=== PATIENT | female | born 1955 | race Caucasian/White ===

== ENCOUNTER 2016-04-21 06:57 | Outpatient (CLI) ==
[2015-11-26 19:08] VITALS: BMI 24.4
--- NOTE | 2016-04-21 11:11 | CT ---
EXAM: CT chest with contrast HISTORY: Breast cancer COMPARISON: 01/22/2016 TECHNIQUE: CT chest performed with intravenous contrast. Coronal and sagittal reformatted images o btained. FINDINGS: Thyroid and thoracic inlet appear normal. Right chest port terminating in superior vena cava. Heart is normal in size. No pericardial effusion. Aorta normal in caliber with atherosclero sis. No acute abnormalities of the bones. No suspicious lytic or blastic lesions identified. Dege nerative changes in the spine. No pneumothorax. No pleural effusion. No focal consolidation. The re is severe emphysematous change with probable honeycombing/fibrosis. Stable line seen in the post erior right lung. There is a right upper lobe nodular density on image 19 that measures 1.1 x 1.0 c m, unchanged. Additional 1.0 cm nodule right upper lobe image 15 also grossly unchanged. No new pu lmonary nodules identified. Stable partially calcified mediastinal and hilar lymph nodes. There is a newly enlarged 1.1 cm right mediastinal lymph node adjacent to the superior vena cava on image 22. Additional stable partially calcified mediastinal and hilar lymph nodes present. No axillary lymp hadenopathy. Please refer to separate report CT abdomen pelvis regarding findings in the upper abdom en. IMPRESSION: 1. Pulmonary metastasis, grossly unchanged. 2. Newly enlarged mediastinal lymph node as described. Additional stable partially calcified media stinal and hilar lymph nodes. 3. Emphysema.
--- NOTE | 2016-04-21 11:39 | CT ---
EXAM: CT ABDOMEN AND PELVIS HISTORY: History of breast cancer TECHNIQUE: CT abdomen and pelvis with intravenous contrast. Images were reconstructed using 5 mm se ction thickness. Reformations were prepared. 75 mL Omnipaque. COMPARISON: 01/22/2016 FINDINGS: No liver or splenic lesions identified. Gallbladder is absent. Pancreas and adrenal glands appear normal. A few tiny low attenuation lesions of the kidneys may represent cysts. No hydronephrosis. Moderate atherosclerotic disease of the aorta with no aneurysmal caliber. No evidence of retroperi toneal or mesenteric lymphadenopathy. Stomach is within normal limits. Bowel gas pattern is nonobstructive. No uterus is present. Urina ry bladder is unremarkable. No ascites. There is no notable abdominal wall hernia. Scoliosis and degenerative facet disease of the lower spine are present. No osseous metastases are clearly eviden t. Fibrosis of the lung bases is moderately severe. IMPRESSION: 1. No evidence of metastatic disease. 2. Moderate atherosclerotic disease. 3. Fibrotic lung bases.
== END 2016-04-21 06:58 | disposition home or self-care (01) ==
LOC: RAD 06:57
PROVIDERS: ATTEND Internal Medicine Hematology & Oncology
DX: C50.919 Malignant neoplasm of unspecified site of unspecified female breast (principal)

== ENCOUNTER 2016-05-14 09:36 | Outpatient (CLI) ==
[2015-11-26 19:08] VITALS: BMI 24.4
--- NOTE | 2016-05-14 11:56 | CT ---
EXAM: CT chest, abdomen and pelvis HISTORY: Breast cancer, evaluation for metastatic disease. TECHNIQUE: CT chest, abdomen and pelvis with intravenous contrast. Detailed axial sections. Coron al and sagittal re-formations. 75 ml Omnipaque 350 utilized. FINDINGS: Comparison is to 04/21/2016 CT chest abdomen and pelvis. Normal heart size is. Moderate aortic atherosclerosis. There are mediastinal and hilar lymph nodes many of which are calcified. Largest noncalcified entity measures about 0.82 cm short axis. These findings are grossly stable. Lungs reveal severe fibrosis and emphysema. There is a partially calcified stellate opacity in the posterior right upper lobe measuring about 1.9 cm. Anteriorly there is a similar entity measuring a bout 0.9 cm. Lobular pleural thickening is noted along the posterior and medial right upper lobe wi th some areas having coarse calcification. These findings are stable without obvious worsening or i mprovement. Bones of the thorax reveal no obvious lytic or blastic lesions. Peripheral soft tissues at the leve l of the thorax are within normal limits. No splenic or liver lesions. Gallbladder is absent. Stable dilatation of the common bile duct. No pancreatic or adrenal pathology. The kidneys are stable without hydronephrosis. Moderate atherosc lerotic disease of the aorta. No obvious retroperitoneal or mesenteric lymphadenopathy. Stomach is grossly normal. No appendix is identified. Postop changes of the lower descending colon are seen. Normal bowel gas pattern. Urinary bladder is normal. No uterus is identified. No asci juarez. There is a tiny ventral hernia at the infraumbilical level with a transverse neck of about 0.8 cm having a partial loop of regional small bowel extending into this shallow hernia. No evidence of bowel incarceration or strangulation. This hernia is unchanged other than the partial protrusion o f the bowel which is new. Peripheral soft tissues at the level of the abdomen and pelvis are grossl y within normal limits. The bones at the level of the abdomen and pelvis reveal no lytic or blastic lesion. There is scoliosis and early degenerative changes of the facets. No pneumoperitoneum. IMPRESSION: 1. No obvious change since 04/21/2016 CT chest and abdomen/pelvis. Lobular mass-like pleural thick ening in the medial right lung apex could be benign or malignant. There are small, stellate pulmona ry masses which are stable and these could be benign or malignant. Background of severe emphysema a nd fibrosis. 2. Stable mildly prominent mediastinal lymph nodes are nonspecific. 3. There is a tiny ventral hernia at the infraumbilical level with a transverse neck of about 0.8 c m having a partial loop of regional small bowel extending into this shallow hernia. No evidence of b owel incarceration or strangulation. This hernia is unchanged other than the partial protrusion of the bowel which is new. Normal bowel gas pattern. 4. Moderate atherosclerotic disease. 5. Postop changes lower descending colon.
== END 2016-05-14 09:37 | disposition home or self-care (01) ==
LOC: RAD 09:36
PROVIDERS: ATTEND Internal Medicine Hematology & Oncology
DX: C50.919 Malignant neoplasm of unspecified site of unspecified female breast (principal)

== ENCOUNTER 2016-05-25 12:22 | Emergency (ER) ==
[2016-05-25 12:29] VITALS: BP 121/90; TEMP 99.8; BMI 24.8
[2016-05-25] MEDS ORDERED: TORADOL IM STA (13:13)
--- NOTE | 2016-05-25 13:15 | ED.PDOC ---
General ED Provider: Dr. RAJ PINEDO Chief Complaint: Fall Stated Complaint: Fell off of the bed yesterday, has h/o breast cancer with mets , on chemotherapy now. Time Seen by Physician: 13:17 Mode of Arrival: Walk-In Information Source: Patient Nursing and Triage Documentation Reviewed and Agree: Yes Trauma/Injury Complaint Exam - Truncal Trauma Complaint/Exam Location of Pain: Reports: Right, Chest Symptoms Are: Still present Onset of Pain: Reports: Immediate Initial Severity: Moderate Current Severity: Moderate Mechanism: Reports: Direct blow, Fall Aggravating: Reports: Movement Alleviating: Reports: Rest Associated Signs and Symptoms: Denies: Short of air, Chest pain, Cough, Hematuria, Abdominal pain, Fever, Nausea, Vomiting Related Surgical History: Reports: None Diminished Breath Sounds: No Muffled Heart Sounds Present: No Paradoxical Chest Wall Movement Present: No Abdominal Guarding Present: No Skin Findings: Present: Normal findings Differential Diagnoses: Chest Wall Contusion, Rib Fracture Review of Systems - Review Of Systems Constitutional: Reports: No symptoms Eyes: Reports: No symptoms Ears, Nose, Mouth, Throat: Reports: No symptoms Respiratory: Reports: No symptoms Cardiac: Reports: Chest pain (rt rib pain) GI: Reports: No symptoms : Reports: No symptoms Musculoskeletal: Reports: No symptoms Skin: Reports: No symptoms Neurological: Reports: No symptoms Endocrine: Reports: No symptoms Hematologic/Lymphatic: Reports: No symptoms All Other Systems: Reviewed and Negative Past Medical History - Past Medical History Previously Healthy: No Endocrine: Reports: Dyslipidemia Cardiovascular: Reports: HI, Hypertension Respiratory: Reports: COPD Hematological: Reports: None Gastrointestinal: Reports: GERD Genitourinary: Reports: None Neuro/Psych: Reports: Migraine, Anxiety, Depression Musculoskeletal: Reports: Back Pain Cancer: Reports: Lung, Colon, Breast (R BREAST SURG) Last Menstrual Period: n/a - Surgical History General Surgical History: Reports: Hysterectomy, Appendectomy, Cholecystectomy, Orthopedic, Back Surgery, Other. Denies: CABG (HEART CATH-September; 8 IN OF COLON REM 6 MO AGO, LUNG SURG RIGHT-June) - Family History Family History: Reports: None, Other (Yes: CHILDREN ARE VERBALLY ABUSIVE, THEY DO NOT LIVE WITH HER.) - Social History Smoking Status: Current some day smoker Smoking Cessation Counseling Time: > 3 min - 10 min Hx Substance Use: No Alcohol Screening: None Physical Exam - Physical Exam Appearance: Ill-appearing, Thin Pain Distress: Mild Eyes: TYLER, EOMI, Conjunctiva clear ENT: Ears normal, Nose normal, Oropharynx normal Respiratory: Airway patent, Breath sounds clear, Breath sounds equal, Respirations nonlabored Cardiovascular: RRR, Pulses normal, No rub, No murmur GI/: Soft, Nontender, No masses, Bowel sounds normal, No Organomegaly Musculoskeletal: Normal strength, ROM intact, No edema, No calf tenderness Skin: Warm, Dry, Normal color Neurological: Sensation intact, Motor intact, Reflexes intact, Cranial nerves intact, Alert, Oriented Psychiatric: Affect appropriate, Mood appropriate Interpretation - Radiology Interpretation Radiology Interpretation By: ED Physician Radiology Results: Negative Critical Care Note - Critical Care Note Total Time (mins): 0 Course - Course Orders, Labs, Meds: Orders Category Date Time Status Ketorolac Tromethamine [Toradol] MEDS 05/25/16 13:13 Discontinued 60 mg IM ONCE STA RIBS, UNILATERAL RIGHT Stat RADS 05/25/16 13:14 Taken Medications Discontinued Medications Generic Name Dose Route Start Last Admin Trade Name Freq PRN Reason Stop Dose Admin Ketorolac Tromethamine 60 mg 05/25/16 13:13 05/25/16 13:32 Toradol IM 05/25/16 13:14 60 mg ONCE STA Administration Vital Signs: Temp Pulse Resp BP Pulse Ox 05/25/16 12:26 99.8 F H 119 H 16 121/90 96 Departure - Departure Time of Disposition: 13:35 Disposition: HOME SELF-CARE Discharge Problem: Contusion of rib on right side Qualifiers: Encounter type: initial encounter Qualifier Code: (S20.211A) Contusion of right front wall of thorax, initial encounter Instructions: Rib Contusion (ED) Condition: Stable Pt referred to PMD for follow-up: Yes Additional Instructions: rest keep f/u with Oncologist Prescriptions: Hydrocodone/Acetaminophen [Sullivan 5-325 Tablet] 1 tab PO TID PRN #12 tablet PRN Reason: PAIN Allergies/Adverse Reactions: Allergies aspirin Adverse Reaction (Verified 05/25/16 12:30) ciprofloxacin HCl [From Cipro] Adverse Reaction (Verified 05/25/16 12:30) codeine Adverse Reaction (Verified 05/25/16 12:30) cyclobenzaprine HCl [From Flexeril] Adverse Reaction (Verified 05/25/16 12:30) Home Medications: Ambulatory Orders Alprazolam [Xanax] 1 mg PO QID 12/28/12 Ranitidine HCl [Zantac 75] 300 mg PO BID 12/28/12 Metoprolol Tartrate [Lopressor] 12.5 mg PO BID 04/02/14 Isosorbide Mononitrate [Imdur] 30 mg PO DAILY 06/19/14 Lisinopril 2.5 mg PO DAILY 12/20/15 Alprazolam [Xanax] 1 mg PO QID #120 01/17/16 Escitalopram Oxalate [Lexapro] 10 mg PO DAILY #30 01/17/16 Hydrocodone/Acetaminophen [Sullivan 5-325 Tablet] 1 tab PO TID PRN #12 tablet 05/25 Disposition Discussed With: Patient
--- NOTE | 2016-05-25 15:07 | DI ---
EXAM: Right ribs; AP, oblique, and cone down AP views HISTORY: Rib pain COMPARISON: Chest Xray from 08/21/2015 FINDINGS: There is no displaced rib fracture. There is no pneumothorax or pleural effusion. There are postsurgical changes seen involving the right fourth rib laterally. There has been prior parti al pneumonectomy on the right. There is a Port-A-Cath in place. IMPRESSION: 1.No displaced rib fracture.
== END 2016-05-25 14:02 | disposition home or self-care (01) ==
LOC: ED 12:22
DX: S20.211A Contusion of right front wall of thorax, initial encounter (principal); C50.919 Malignant neoplasm of unspecified site of unspecified female breast; C79.9 Secondary malignant neoplasm of unspecified site; W06.XXXA Fall from bed, initial encounter; F17.210 Nicotine dependence, cigarettes, uncomplicated; Z79.899 Other long term (current) drug therapy
CPT/HCPCS: 96372; 99283

== ENCOUNTER 2016-06-10 11:08 | Outpatient (CLI) | payer OTHER ==
--- NOTE | 2016-06-10 11:55 | DI ---
EXAM: Two views of the chest. History: Anterior chest pain. Comparison: Chest radiograph 08/21/2015, chest CT 05/14/2016 Findings: Heart size is normal. Right central line seen in place. No pleural fluid and no pneumoth orax. No acute osseous abnormalities. Atherosclerotic vascular calcifications. Postsurgical hammonds es with scarring again seen within the right lung apex. Emphysema and pulmonary fibrosis again note d. No definite acute infiltrates. Impression: No definite acute infiltrates. Emphysema and pulmonary fibrosis. Right upper lung pos t surgical changes with scarring again noted.
== END 2016-06-10 11:09 | disposition home or self-care (01) ==
LOC: RAD 11:08
PROVIDERS: ATTEND Physician Assistant
DX: R07.89 Other chest pain (principal)

== ENCOUNTER 2016-06-24 12:37 | Outpatient (CLI) ==
--- NOTE | 2016-06-24 13:23 | DI ---
EXAM: Radiographs, right scapula HISTORY: Right scapular pain. COMPARISON: Chest CT 05/14/2016. TECHNIQUE: Two views. FINDINGS: Bone mineralization is decreased. There is no fracture or dislocation. The joint spaces are maintained. No focal soft tissue abnormality is seen. Right-sided chest port is present. Post surgical changes of the right lung with underlying scarring and fibrosis noted. There is an old rig ht fourth rib fracture. IMPRESSION: No abnormality of the right scapula.
== END 2016-06-24 12:38 | disposition home or self-care (01) ==
LOC: RAD 12:37
PROVIDERS: ATTEND Physician Assistant
DX: M25.511 Pain in right shoulder (principal)

== ENCOUNTER 2016-07-16 08:15 | Outpatient (RCR) ==
--- NOTE | 2016-07-08 10:47 | RS.OPPTEV2 ---
Date of Note: 07/07/16 Visit #: 1 Date of Evaluation: 07/07/16 Payer Source: MEDICARE Date of Onset/Injury/Change in Status: 05/25/16 Treatment Diagnosis: Right shoulder pain History of Condition/Mechanism of Injury:: Patient states her pain began on 05/25 when she fell out of the bed. Prior Level of Function.....Patient was independent with: ADL's, Self Care, Caregiving, Ambulation/Mobility, Community Integration/Access Functional Limitations: Sleep, Self Care, ADL's, Reaching, Pushing, Pulling, Lifting, Carrying, Community Access/Integration Current Subjective/complaints:: Patient reports the underarm of the right UE feels raw. States she has pain into the shoulder blade and right breast. States she can move the right shoulder, it just hurts. She reports pain at rest or with movement. States she has no tingling or numbness into the right UE. At one point, patient reports having iontophoresis pad(s) to her right breast by a care provider. She states it did help decrease her pain. She states she currently has active right breast and lung Cancer. She receives chemotherapy every three weeks. She will have it this Thursday. Treatment Side (optional): Right *Precautions: Active right breast and lung Cancer, port located at right anterior chest Medical History Medical History: Hypertension, Emphysema Surgical History: Cholecystectomy Surgical History Comments:: Right breast surgery, not a full mastectomy,unsure of lymph node removal, Smoking Status: Current every day smoker Hx Home Medications: Flexeril, Percocet Patient's Goals: Her goal is to get relief of right scapula and breast pain. Pain Assessment - Pain Description Pain Location: Right breast and scapula Current Pain Intensity: 1010/10 Functional Outcome Measure UE Functional Index: 30 (30/80=62.5% impairment) - G Codes & Severity Modifier G Codes & Modifier: Carry current CL. Carry goal CJ Source of G Code score: UE functional scale Observation - Observation Posture: Forward Head, Rounded Shoulders, Scapula Asymmetry (right elevated) Handedness: Right General Range of Motion: Patient demonstrates full cervical and right UE AROM. Muscle Strength: Right shoulder 4 to 4+/5 throughout with reports of pain with resistance. Reports pain felt at the shoulder blade. Special Tests: Impingement- Negative, Drop arm -Negative, No painful arc. Empty can-negative Infant Teacher Strength Left Hand Infant Teacher Strength: 41 lbs. Right Hand Infant Teacher Strength: 39 lbs. Dynamometer Testing Position: 2nd Position Palpation Comments:: Patient reports tenderness throughout the right scapular musculature , especially along the medial and inferior borders of the scapula. Demonstrates no significant increased muscle tone in the area of the right scapula compared to the left. Reports no tenderness with palpation throughout the right GH joint. Sensation - Sensation Comments: Reports sensation intact throughout bilateral UE's. Interventions - Exercise/Activities/Manual Therapy Exercises/Activities: NA Manual Therapy: NA - Charges Total Direct Minutes: 50 mins Total Treatment Time: 50 mins Procedures billed for this date of service:: Evaluation medium Assessment Assessment: Patient presents to therapy with a diagnosis of shoulder pain. Her reports in the department are more right scapula and right breast pain. She reports pain with all movement and reports signficant tenderness around the right scapula. She reports receiving chemotherapy treatments for active right breast and lung cancer. She may benefit from manual therapy to reduce tenderness and possible radiating pain around the right scapula muscles. She will also benefit from postural education and strengthening. Patient Education: Education of diagnosis, Body/Joint mechanics Rehab Potential: Fair Short Term Goals Goal #1: Tenderness around right scapula decreased to minimal. Goal to be met by: 07/22/16 Goal #2: Pt independent and compliant with basic HEP. Goal to be met by: 07/22/16 Goal #3: Patient to demonstrate improved postural awareness. Goal to be met by: 07/22/16 Fpc Goals Goal #1: Pt knows HEP and to continue ex's to maintain functional level at D/C Goal to be met by: 08/12/16 Goal #2: Pt able to perform selfcare and light ADL's with minimal right UE pain. Goal to be met by: 08/12/16 Goal #3: Score on UE functional index increased to <39% impairment. Goal to be met by: 08/12/16 Plan - Treatment to be Provided Procedures: Therapeutic Exercises, Therapeutic Activity, Manual Therapy, Patient Education Modalities: Cryotherapy, Hot Packs - Treatment Plan Frequency: 2-3 X week Duration: 3 weeks ORDER # VISITS AND/OR THROUGH DATE: 08/12/16 - Treatment Code (2) Pain in right shoulder Qualifiers: Chronicity: acute Qualified Description: Acute pain of right shoulder Qualifier Code(s): (M25.511) Pain in right shoulder (3) Myalgia Comments: M79.1 pain at right scapula musculature
--- NOTE | 2016-07-09 09:25 | RS.OPPTDN ---
Subjective Date of Note: 07/09/16 Visit #: 2 Date of Evaluation: 07/07/16 Payer Source: MEDICARE Treatment Diagnosis: Right shoulder pain Current Subjective/complaints:: Reports her her pain is severe this morning, tried using ice ,but made it worse,prefers the moist heat. *Precautions: Active right breast and lung Cancer, port located at right anterior chest Pain Assessment - Pain Description Pain Location: Right breast and scapula Pain Description: Burning, Throbbing Current Pain Intensity: greater than 10 - Heat/Cryotherapy Treatment: Hot Pack (20 mins. prior to exercises and manual therapy) Interventions - Exercise/Activities/Manual Therapy Exercises/Activities: 10 mins. instruction and return demo of 1 # wand exercises for scpular pro/retraction,rowing motion ,overhead reaching.AROM of shoulder flexion overhead without wand. Total minutes of Exercise: 10 Manual Therapy: 20 mins. soft tissue massage along the R scapular surface and R shoulder. Total minutes of Manual Therapy: 20 HOME EXERCISE PROGRAM: None given today ,instructed to focus on pain control. - Charges Total Direct Minutes: 30 Total Treatment Time: 50 Procedures billed for this date of service:: hp,ex,manual therapy Assessment: Patient reports numbness and tingling in the R scapular area, reports her pain is unchanged after treatment today.She has no limitation of R shoulder ROM today with active motion. Patient Education: Education of diagnosis, Body/Joint mechanics, Home Exercise Program, Home Safety, Activity Modification, Education of Plan of Care Short Term Goals Goal #1: Tenderness around right scapula decreased to minimal. Goal to be met by: 07/22/16 Progress towards Goal:: No Change Goal #2: Pt independent and compliant with basic HEP. Goal to be met by: 07/22/16 (N/A) Goal #3: Patient to demonstrate improved postural awareness. Goal to be met by: 07/22/16 Planner Chief Goals Goal #1: Pt knows HEP and to continue ex's to maintain functional level at D/C Goal to be met by: 08/12/16 Goal #2: Pt able to perform selfcare and light ADL's with minimal right UE pain. Goal to be met by: 08/12/16 Goal #3: Score on UE functional index increased to <39% impairment. Goal to be met by: 08/12/16 Plan PLAN OF CARE EXPIRES ON:: 08/12/16 ORDER # VISITS AND/OR THROUGH DATE: 08/12/16 PLAN: Continue Plan of Care
--- NOTE | 2016-07-14 09:30 | RS.OPPTDN ---
Subjective Date of Note: 07/14/16 Visit #: 3 Date of Evaluation: 07/07/16 Payer Source: MEDICARE Treatment Diagnosis: Right shoulder pain Current Subjective/complaints:: Reports elevated pain today,took ibuprofen about one hour ago,did not seem to help.She enters clinic with the R UE in sling position,using the L UE assisting. *Precautions: Active right breast and lung Cancer, port located at right anterior chest Pain Assessment - Pain Description Pain Location: Right breast and scapula Pain Description: Burning, Throbbing Current Pain Intensity: greater than 10 - Heat/Cryotherapy Treatment: Hot Pack (20 mins. to R shoulder prior to exercises and manual) Interventions - Exercise/Activities/Manual Therapy Exercises/Activities: 15 mins. of 1 # wand exercises for scapular pro/ retraction,rowing motion ,overhead reaching.AROM of shoulder flexion overhead without wand. Total minutes of Exercise: 15 Manual Therapy: 20 mins. soft tissue massage along the R scapular surface and R shoulder. Total minutes of Manual Therapy: 20 HOME EXERCISE PROGRAM: AROM of R shoulder in all planes,scapular motion ( rowing ) ,in PAIN FREE ROM. - Charges Total Direct Minutes: 35 Total Treatment Time: 55 Procedures billed for this date of service:: cp,ex,manual therapy Assessment: Patient 's R UE ROM is WNL,with pain inthe R subscapular area,and along the medial border of the R scapula. Patient Education: Education of diagnosis, Body/Joint mechanics, Home Exercise Program, Home Safety, Activity Modification, Education of Plan of Care Short Term Goals Goal #1: Tenderness around right scapula decreased to minimal. Goal to be met by: 07/22/16 Progress towards Goal:: No Change Goal #2: Pt independent and compliant with basic HEP. Goal to be met by: 07/22/16 (N/A) Progress towards Goal:: Progressing Goal #3: Patient to demonstrate improved postural awareness. Goal to be met by: 07/22/16 Progress towards Goal:: Progressing Distillation Operator Helper Goals Goal #1: Pt knows HEP and to continue ex's to maintain functional level at D/C Goal to be met by: 08/12/16 Goal #2: Pt able to perform selfcare and light ADL's with minimal right UE pain. Goal to be met by: 08/12/16 Goal #3: Score on UE functional index increased to <39% impairment. Goal to be met by: 08/12/16 Plan PLAN OF CARE EXPIRES ON:: 08/12/16 ORDER # VISITS AND/OR THROUGH DATE: 08/12/16 PLAN: Continue Plan of Care
--- NOTE | 2016-07-16 09:24 | RS.OPPTDN ---
Subjective Date of Note: 07/16/16 Visit #: 4 Date of Evaluation: 07/07/16 Payer Source: MEDICARE Treatment Diagnosis: Right shoulder pain Current Subjective/complaints:: Patient reports she had relief from her pain after last session until about 8 PM that night.She also reports the pain meds are upsetting her stomach. *Precautions: Active right breast and lung Cancer, port located at right anterior chest Pain Assessment - Pain Description Pain Location: Right breast and scapula Pain Description: Burning, Throbbing Current Pain Intensity: 10 - Heat/Cryotherapy Treatment: Hot Pack (15 mins. to R shoulder prior to exercise and manual therapy.) Interventions - Exercise/Activities/Manual Therapy Exercises/Activities: 15 mins. of 1 # wand exercises for scapular pro/ retraction,rowing motion ,overhead reaching.AROM of shoulder flexion overhead without wand. Total minutes of Exercise: 15 Manual Therapy: 25 mins. soft tissue massage along the R scapular surface and R shoulder. Total minutes of Manual Therapy: 25 HOME EXERCISE PROGRAM: AROM of R shoulder in all planes,scapular motion ( rowing ) ,in PAIN FREE ROM. - Charges Total Direct Minutes: 40 Total Treatment Time: 55 Procedures billed for this date of service:: hp,ex,manual 2 Assessment: Patient reports increased burning sensation today,increased tenderness to light touch during the manual therapy today.She has multiple trigger points along the medial border of the R scapula and the muscle belly of the R upper trap. Patient Education: Body/Joint mechanics, Home Exercise Program, Activity Modification, Education of Plan of Care Patient demonstrates compliance with HEP?: Yes Short Term Goals Goal #1: Tenderness around right scapula decreased to minimal. Goal to be met by: 07/22/16 (increased tendernes today) Progress towards Goal:: Regressing Goal #2: Pt independent and compliant with basic HEP. Goal to be met by: 07/22/16 Progress towards Goal:: Progressing Goal #3: Patient to demonstrate improved postural awareness. Goal to be met by: 07/22/16 Progress towards Goal:: Progressing Intranet Developer Goals Goal #1: Pt knows HEP and to continue ex's to maintain functional level at D/C Goal to be met by: 08/12/16 Progress towards goal: Progressing Goal #2: Pt able to perform selfcare and light ADL's with minimal right UE pain. Goal to be met by: 08/12/16 Goal #3: Score on UE functional index increased to <39% impairment. Goal to be met by: 08/12/16 Plan PLAN OF CARE EXPIRES ON:: 08/12/16 ORDER # VISITS AND/OR THROUGH DATE: 08/12/16 PLAN: Continue Plan of Care
--- NOTE | 2016-07-21 08:41 | RS.CXNS ---
Date of scheduled appointment: 07/21/16 Type: Cancel (Patient called,sick today.)
--- NOTE | 2016-07-23 08:27 | RS.CXNS ---
Date of scheduled appointment: 07/23/16 Type: Cancel (Called ,did not give reason.)
--- NOTE | 2016-09-16 15:35 | RS.QUICKDC ---
Discharge from PT Date of Discharge: 08/22/16 Number of Visits: 4 Reason for Discharge: No appts. made after 07-23-16.
== END 2016-07-27 ==
PROVIDERS: ATTEND Physician Assistant
DX: M25.511 Pain in right shoulder (principal); C50.919 Malignant neoplasm of unspecified site of unspecified female breast

== ENCOUNTER 2016-07-16 13:12 | Emergency (ER) ==
[2016-07-16 13:19] VITALS: BP 178/104; TEMP 98.6; BMI 25.7
--- NOTE | 2016-07-16 13:23 | ED.PDOC ---
General ED Provider: Dr. SETH DRUMMOND JR Chief Complaint: Respiratory Complaint Stated Complaint: had physical therapy this am--felt weak afterwards--went home and laid down on couch--had coughing episode and noted bright red blood --" chaitanya slimey"--takes chemo treatment for breast ca which is now affecting her lungs[ End ]98.6 91 20 94% 178/104 10/10 heard faint crackles bilaterally--no distress noted--has port to right chest[End] percocet Time Seen by Physician: 13:22 Mode of Arrival: Walk-In Information Source: Patient Exam Limitations: No limitations Primary Care Provider: JOSÉ KOVACS Nursing and Triage Documentation Reviewed and Agree: No Review of Systems - Review Of Systems Constitutional: Reports: Malaise, Weakness Eyes: Reports: No symptoms Ears, Nose, Mouth, Throat: Reports: No symptoms Respiratory: Reports: Cough (HEMOPTYSIS) Cardiac: Reports: No symptoms GI: Reports: No symptoms : Reports: No symptoms Musculoskeletal: Reports: No symptoms Skin: Reports: No symptoms Neurological: Reports: No symptoms Endocrine: Reports: No symptoms Hematologic/Lymphatic: Reports: No symptoms All Other Systems: Other Past Medical History - Past Medical History Previously Healthy: No Endocrine: Reports: Dyslipidemia Cardiovascular: Reports: [place] (HEART CATH-September, ), Hypertension Respiratory: Reports: COPD Hematological: Reports: None Gastrointestinal: Reports: GERD Genitourinary: Reports: None Neuro/Psych: Reports: Migraine, Anxiety, Depression Musculoskeletal: Reports: Back Pain Cancer: Reports: Lung, Colon ( 8 IN OF COLON REMOVED), Breast (R BREAST SURG, metAstatic breast cancer) Last Menstrual Period: hysterectomy Other Pertinent Past Medical History: R BREAST SURG, GALLBLADDER REM, HYSTERECTOMY - Surgical History General Surgical History: Reports: Hysterectomy, Appendectomy, Cholecystectomy, Orthopedic, Back Surgery, Other (R BREAST SURG,LUNG SURG RIGHT-June). Denies: CABG (HEART CATH-September; 8 IN OF COLON REM 6 MO AGO, LUNG SURG RIGHT-June) - Family History Family History: Reports: None, Other (Yes: CHILDREN ARE VERBALLY ABUSIVE, THEY DO NOT LIVE WITH HER.) - Social History Smoking Status: Light tobacco smoker Hx Substance Use: No Alcohol Screening: None Physical Exam - Physical Exam Appearance: Ill-appearing Ill-appearing: Mild Pain Distress: Mild Eyes: TYLER, EOMI, Conjunctiva clear ENT: Ears normal, Nose normal, Oropharynx normal Neck: Supple Respiratory: Airway patent, Breath sounds equal, Respirations nonlabored, Rhonchi Cardiovascular: RRR, Pulses normal, No rub, No murmur GI/: Soft, Nontender, No masses, Bowel sounds normal, No Organomegaly Musculoskeletal: Normal strength, ROM intact, No edema, No calf tenderness Skin: Warm, Dry, Normal color Neurological: Sensation intact, Motor intact, Reflexes intact, Cranial nerves intact, Alert, Oriented Psychiatric: Affect appropriate, Mood appropriate Re-Evaluation - Re-Evaluation Time of Re-Evaluation: 15:48 Status: Improved (USES ZANTAC FOR NAUSEA HAS PLENTY PER PATIENT) Critical Care Note - Critical Care Note Total Time (mins): 10 Course - Course Hematology/Chemistry: 07/16/16 13:45 07/16/16 13:45 Orders, Labs, Meds: Lab Review 07/16/16 13:45 WBC 8.91 RBC 4.02 L Hgb 11.9 L Hct 34.5 L MCV 85.8 MCH 29.6 MCHC 34.5 RDW Coeff of Misbah 13.1 Plt Count 257 Immature Gran % (Auto) 0.2 Neut % (Auto) 51.5 Lymph % (Auto) 34.0 [place] % (Auto) 10.7 H Eos % (Auto) 3.4 Baso % (Auto) 0.2 Immature Gran # (Auto) 0.0 Neut # 4.6 Lymph # 3.0 [place] # 1.0 Eos # 0.3 Baso # 0.0 D-Dimer (Manual) 1171.79 Sodium 140 Potassium 3.3 L Chloride 107 Carbon Dioxide 25 Anion Gap 11.3 BUN 7 Creatinine 0.58 L Estimated GFR (MDRD) 105.00 BUN/Creatinine Ratio 12.06 Glucose 104 Calcium 8.8 Total Bilirubin 0.49 AST 21 ALT 16 Alkaline Phosphatase 99 Total Creatine Kinase 34 Troponin I 0.0280 B-Natriuretic Peptide 154 H Total Protein 7.4 Albumin 3.3 L Globulin 4.1 Albumin/Globulin Ratio 0.80 Orders Category Date Time Status EKG-(ED ONLY) Stat CARDIO 07/16/16 13:27 Completed B-TYPE NATRIURETIC PEPTIDE Stat LAB 07/16/16 13:45 Completed CBC W/ AUTO DIFF Stat LAB 07/16/16 13:45 Completed COMPREHENSIVE METABOLIC PANEL Stat LAB 07/16/16 13:45 Completed CREATINE KINASE Stat LAB 07/16/16 13:45 Completed D-DIMER Stat LAB 07/16/16 13:45 Completed TROPONIN I Stat LAB 07/16/16 13:45 Completed CHEST, 2 VIEWS PA & LAT Stat RADS 07/16/16 13:28 Completed Vital Signs: Temp Pulse Resp BP Pulse Ox 07/16/16 13:12 98.6 F 91 H 20 178/104 H 94 L Departure - Departure Time of Disposition: 15:38 Disposition: HOME SELF-CARE Discharge Problem: Pneumonia, Metastatic breast cancer Instructions: Pneumonia (ED) Condition: Stable Pt referred to PMD for follow-up: Yes Additional Instructions: CALL PMD AND ONCOLOGIST FOR FOLLOW UP RECOMMEND RECHECK 1 WEEK OR LESS RECOMMEND REVIEW PROGNOSIS AND [facility] WHEN NEEDED STEFFISBERNADETTEN FOR COUGH RECHECK CHEST XRAY AFTER TIME TO RESOLVED INFECTION RETURN IF FEVER OVER 101.0IF WEAKENING IF UNABLE TO KEEP FLUIDS OR MEDICATION DOWN Prescriptions: Amoxicillin/Potassium Clav [Augmentin 875-125 mg Tab] 1 tab PO BIDWM #14 tablet Benzonatate [Tessalon Perles] 200 mg PO TID PRN #20 capsule PRN Reason: Cough Allergies/Adverse Reactions: Allergies aspirin Adverse Reaction (Verified 07/16/16 13:23) ciprofloxacin HCl [From Cipro] Adverse Reaction (Verified 07/16/16 13:23) codeine Adverse Reaction (Verified 07/16/16 13:23) Home Medications: Ambulatory Orders Ranitidine HCl [Zantac 75] 300 mg PO BID 12/28/12 Metoprolol Tartrate [Lopressor] 12.5 mg PO BID 04/02/14 Isosorbide Mononitrate [Imdur] 30 mg PO DAILY 06/19/14 Lisinopril 2.5 mg PO DAILY 12/20/15 Escitalopram Oxalate [Lexapro] 10 mg PO DAILY #30 01/17/16 Alprazolam [Xanax] 2 mg PO QID #60 07/03/16 Amoxicillin/Potassium Clav [Augmentin 875-125 mg Tab] 1 tab PO BIDWM #14 tablet 07/16/16 Benzonatate [Tessalon Perles] 200 mg PO TID PRN #20 capsule 07/16/16
[2016-07-16 13:55] LABS: BASOPHILS % (AUTO) 0.2 % (0.0-3.0); EOSINOPHILS # (AUTO) 0.3 K/ul (0.0-0.7); EOSINOPHILS % (AUTO) 3.4 % (0.0-7.0); HEMATOCRIT 34.5 % (37.0-47.0); HEMOGLOBIN 11.9 g/dl (12.0-16.0); IMMATURE GRANULOCYTE % (AUTO) 0.2 % (0.0-5.0); MEAN CORPUSCULAR HEMOGLOBIN 29.6 pg (27.0-31.0); MEAN CORPUSCULAR HGB CONC 34.5 (31.8-35.4); MEAN CORPUSCULAR VOLUME 85.8 fl (81.0-99.0); MONOCYTES % (AUTO) 10.7 (0-10); NEUTROPHILS # (AUTO) 4.6 K/ul (2.0-6.9); NEUTROPHILS % (AUTO) 51.5; PLATELET COUNT 257 10^3/uL (140-440); RED BLOOD COUNT 4.02 10^6/ul (4.20-5.40); WHITE BLOOD COUNT 8.91 K/ul (4.6-10.2)
[2016-07-16 14:20] LABS: ALBUMIN 3.3 g/dL (3.4-5.0); ALBUMIN/GLOBULIN RATIO 0.8; ANION GAP 11.3; BILIRUBIN,TOTAL 0.49 mg/dL (0.00-1.20); BUN/CREATININE RATIO 12.06; CALCIUM 8.8 mg/dL (8.2-10.2); CREATININE 0.58 mg/dL (0.60-1.30); POTASSIUM 3.3 mmol/L (3.5-5.10); TOTAL PROTEIN 7.4 g/dL (5.8-8.1); TROPONIN I 0.028 ng/ml (0.0000-0.4000)
--- NOTE | 2016-07-16 15:34 | DI ---
EXAM: Chest two view, frontal and lateral views. HISTORY: Hemoptysis. COMPARISON: 06/10/2016. FINDINGS: Right internal jugular approach chest port again noted. Postsurgical change of the right lung again noted with right upper lung scarring. New opacity in the posterior aspect of the right upper lung suggestive since prior study. Increased interstitial markings noted throughout both lung s. No pleural effusion or pneumothorax identified. No acute osseous abnormality detected. Clips s een in the upper abdomen. IMPRESSION: Suspect a new focus of right upper lung pneumonia.
== END 2016-07-16 16:00 | disposition home or self-care (01) ==
LOC: ED 13:12
DX: J18.9 Pneumonia, unspecified organism (principal); C50.911 Malignant neoplasm of unspecified site of right female breast; C78.00 Secondary malignant neoplasm of unspecified lung; C78.5 Secondary malignant neoplasm of large intestine and rectum; R04.2 Hemoptysis; R06.9 Unspecified abnormalities of breathing; I10 Essential (primary) hypertension; I25.2 Old myocardial infarction; F17.210 Nicotine dependence, cigarettes, uncomplicated; Z79.899 Other long term (current) drug therapy
CPT/HCPCS: 36415; 80053; 82550; 83880; 84484; 85025; 85379; 93005; 93010; 99283

== ENCOUNTER 2016-08-11 08:30 | Emergency (ER) | payer OTHER ==
[2016-08-11 08:46] VITALS: BP 108/74; TEMP 97.5; BMI 24.7
[2016-08-11 09:21] LABS: BILIRUBIN,URINE Negative (NEGATIVE); KETONES,URINE Negative (NEGATIVE); LEUKOCYTE ESTERASE ,URINE 3+ (NEGATIVE); NITRITE,URINE Negative (NEGATIVE); PH,URINE 5.5 (5-9); PROTEIN,URINE 2+ (NEGATIVE); URINE, BLOOD 2+ (NEGATIVE)
[2016-08-11 09:24] LABS: ADD URINE MICROSCOPIC YES
[2016-08-11 09:28] LABS: BACTERIA,URINE 1+ (NOT PRESENT)
--- NOTE | 2016-08-11 09:36 | ED.PDOC ---
General ED Provider: Dr. SETH DRUMMOND JR Chief Complaint: Urinary Problem Stated Complaint: FREQUENT URINATION WITH BURNING[End]FOUR DAYS AGO 08/08/16 97.5 111 20 96% 108/74. Time Seen by Physician: 09:29 Mode of Arrival: Walk-In Information Source: Patient, Family Exam Limitations: No limitations Primary Care Provider: JOSÉ KOVACS Nursing and Triage Documentation Reviewed and Agree: No Review of Systems - Review Of Systems Constitutional: Reports: Malaise Eyes: Reports: No symptoms Ears, Nose, Mouth, Throat: Reports: No symptoms Respiratory: Reports: No symptoms Cardiac: Reports: No symptoms GI: Reports: No symptoms : Reports: Burning, Dysuria, Frequency Musculoskeletal: Reports: No symptoms Skin: Reports: No symptoms Neurological: Reports: No symptoms Endocrine: Reports: No symptoms Hematologic/Lymphatic: Reports: No symptoms All Other Systems: Other Past Medical History - Past Medical History Previously Healthy: No Endocrine: Reports: Dyslipidemia Cardiovascular: Reports: [place] (HEART CATH-September, ), Hypertension Respiratory: Reports: COPD Hematological: Reports: None Gastrointestinal: Reports: GERD Genitourinary: Reports: None Neuro/Psych: Reports: Migraine, Anxiety, Depression Musculoskeletal: Reports: Back Pain Cancer: Reports: Lung, Colon ( 8 IN OF COLON REMOVED), Breast (R BREAST SURG, metAstatic breast cancer) Last Menstrual Period: 11/27/1983 - Surgical History General Surgical History: Reports: Hysterectomy, Appendectomy, Cholecystectomy, Orthopedic, Back Surgery, Other (R BREAST SURG, LUNG SURG RIGHT-June). Denies : CABG (HEART CATH-September; 8 IN OF COLON REM 6 MO AGO, LUNG SURG RIGHT-June) - Family History Family History: Reports: None, Other (Yes: CHILDREN ARE VERBALLY ABUSIVE, THEY DO NOT LIVE WITH HER.) - Social History Smoking Status: Current some day smoker, Light tobacco smoker Hx Substance Use: No Alcohol Screening: None - Immunizations Tetanus Shot up to Date: Yes Physical Exam - Physical Exam Appearance: Ill-appearing Ill-appearing: Mild Pain Distress: Mild Eyes: TYLER, EOMI, Conjunctiva clear ENT: Ears normal, Nose normal, Oropharynx normal Neck: Supple Respiratory: Airway patent, Breath sounds clear, Breath sounds equal, Respirations nonlabored Cardiovascular: RRR, Pulses normal, No rub, No murmur GI/: Soft, Nontender, No masses, Bowel sounds normal, No Organomegaly Musculoskeletal: Normal strength, ROM intact, No edema, No calf tenderness Skin: Warm, Dry, Normal color Neurological: Sensation intact, Motor intact, Reflexes intact, Cranial nerves intact, Alert, Oriented Psychiatric: Affect appropriate, Mood appropriate Critical Care Note - Critical Care Note Total Time (mins): 0 Course - Course Orders, Labs, Meds: Lab Review 08/11/16 09:05 Urine Color Yellow Urine Clarity Cloudy Urine pH 5.5 Ur Specific [place] 1.015 Urine Protein 2+ Urine Glucose (UA) Negative Urine Ketones Negative Urine Blood 2+ Urine Nitrite Negative Urine Bilirubin Negative Urine Urobilinogen 0.2 Ur Leukocyte Esterase 3+ Urine Microscopic RBC 10-20 Urine Microscopic WBC Tntc Ur Squamous Epith Cells Not present Urine Bacteria 1+ Orders Category Date Time Status UA [URINALYSIS C & S IF INDICATED] Stat LAB 08/11/16 09:05 Completed URINE CULTURE Routine LAB 08/11/16 09:29 Received Vital Signs: Temp Pulse Resp BP Pulse Ox 08/11/16 08:30 97.5 F L 111 H 20 108/74 96 Departure - Departure Time of Disposition: 09:41 Disposition: HOME SELF-CARE Discharge Problem: Urinary tract infectious disease Instructions: Urinary Tract Infection in Women (ED), Phenazopyridine (By mouth) Condition: Good Pt referred to PMD for follow-up: Yes Additional Instructions: symptoms need to resolve in 2-3 days Bactrim for seven days(may stop after 3 days if OK with oncologist or PMD) refill is written given past history may try pyridium for symptoms would obtain referral for urology given extent of symptoms with UTI (avoid potassium supplements unless potassium measures low) Prescriptions: Sulfamethoxazole/Trimethoprim [Bactrim Ds 800/160 mg] 1 tab PO Q12HR #14 tablet Phenazopyridine HCl [Pyridium] 200 mg PO TID PRN #10 tablet PRN Reason: PAIN Allergies/Adverse Reactions: Allergies aspirin Adverse Reaction (Verified 07/16/16 13:23) ciprofloxacin HCl [From Cipro] Adverse Reaction (Verified 07/16/16 13:23) codeine Adverse Reaction (Verified 07/16/16 13:23) Home Medications: Ambulatory Orders Ranitidine HCl [Zantac 75] 300 mg PO BID 12/28/12 Metoprolol Tartrate [Lopressor] 12.5 mg PO BID 04/02/14 Isosorbide Mononitrate [Imdur] 30 mg PO DAILY 06/19/14 Lisinopril 2.5 mg PO DAILY 12/20/15 Escitalopram Oxalate [Lexapro] 10 mg PO DAILY #30 01/17/16 Alprazolam [Xanax] 2 mg PO QID #60 07/03/16 Benzonatate [Tessalon Perles] 200 mg PO TID PRN #20 capsule 07/16/16 Phenazopyridine HCl [Pyridium] 200 mg PO TID PRN #10 tablet 08/11/16 Sulfamethoxazole/Trimethoprim [Bactrim Ds 800/160 mg] 1 tab PO Q12HR #14 tablet 08/11/16
== END 2016-08-11 09:59 | disposition home or self-care (01) ==
LOC: ED 08:30
DX: N39.0 Urinary tract infection, site not specified (principal); Z79.899 Other long term (current) drug therapy; F17.210 Nicotine dependence, cigarettes, uncomplicated
CPT/HCPCS: 81001; 87086; 87186; 99283

== ENCOUNTER 2016-08-15 11:26 | Emergency (ER) | payer OTHER ==
[2016-08-15 11:26] VITALS: BMI 24.7
[2016-08-15 11:31] VITALS: BP 95/66; TEMP 98
[2016-08-15] MEDS ORDERED: MORPHINE 4 MG/ML SYRINGE IM STA (12:18)
[2016-08-15] MEDS ORDERED: MORPHINE 4 MG/ML SYRINGE IVP STA (12:26)
[2016-08-15 12:31] LABS: BASOPHILS # (AUTO) 0.1 K/uL (0-0.2); BASOPHILS % (AUTO) 0.4 % (0.0-3.0); EOSINOPHILS # (AUTO) 0.3 K/ul (0.0-0.7); EOSINOPHILS % (AUTO) 2.7 % (0.0-7.0); HEMATOCRIT 32.1 % (37.0-47.0); HEMOGLOBIN 10.6 g/dl (12.0-16.0); IMMATURE GRANULOCYTE % (AUTO) 0.4 % (0.0-5.0); LYMPHOCYTES # (AUTO) 3.2 K/uL (0.60-3.4); LYMPHOCYTES % (AUTO) 27.7 (10.0-50.0); MEAN CORPUSCULAR VOLUME 84.9 fl (81.0-99.0); MONOCYTES # (AUTO) 1.1 K/uL (0.4-2.0); MONOCYTES % (AUTO) 9.4 (0-10); NEUTROPHILS # (AUTO) 6.9 K/ul (2.0-6.9); NEUTROPHILS % (AUTO) 59.4; PLATELET COUNT 410 10^3/uL (140-440); RED BLOOD COUNT 3.78 10^6/ul (4.20-5.40); WHITE BLOOD COUNT 11.67 K/ul (4.6-10.2)
[2016-08-15] MEDS ORDERED: PHENERGAN 25 MG/ML VIAL 25 MG in SODIUM CHLORIDE 50 ML IV STA (12:31)
[2016-08-15] MEDS ORDERED: PHENERGAN 25 MG/ML VIAL ONE (12:33)
[2016-08-15 13:01] LABS: ALBUMIN 3.1 g/dL (3.4-5.0); ALBUMIN/GLOBULIN RATIO 0.6; ANION GAP 16.1; BILIRUBIN,TOTAL 0.19 mg/dL (0.00-1.20); BUN/CREATININE RATIO 28.94; CALCIUM 9.5 mg/dL (8.2-10.2); CREATININE 1.14 mg/dL (0.60-1.30); POTASSIUM 5.1 mmol/L (3.5-5.10); TOTAL PROTEIN 8.3 g/dL (5.8-8.1); TROPONIN I 0.019 ng/ml (0.0000-0.4000)
[2016-08-15 13:10] LABS: OCCULT BLOOD INTERNAL QC 1 INTERNAL QC VALID; OCCULT BLOOD INTERNAL QC 2 INTERNAL QC VALID; OCCULT BLOOD INTERNAL QC 3 INTERNAL QC VALID; OCCULT BLOOD SAMPLE 1 NEGATIVE (NEGATIVE); OCCULT BLOOD SAMPLE 2 NO SPECIMEN RECEIVED (NEGATIVE); OCCULT BLOOD SAMPLE 3 NO SPECIMEN RECEIVED (NEGATIVE)
--- NOTE | 2016-08-15 13:16 | CT ---
EXAM: CT of the abdomen pelvis without contrast History: Abdominal pain, history of breast cancer. Comparison: Chest CT 08/15/2016, CT abdomen pelvis 05/14/2016 Technique: Multiplanar CT images through the abdomen pelvis were obtained without the administratio n of IV contrast Findings: For details in the lower lungs, please see dedicated chest CT done on the same day. No acu te osseous abnormalities. Cholecystectomy clips. Atherosclerotic vascular calcifications. No focal liver or splenic lesions. No peripancreatic inflammation. New 1.4 cm left adrenal nodule. Right adrenal gland is unremarkab le. New 9 mm upper abdominal gastrohepatic lymph node. Fluid seen in the stomach. Nondilated fluid filled loops of small bowel. No specific evidence for bowel obstruction. There is fluid seen with in the colon. No free air. No ascites. No bladder wall thickening. No hydronephrosis. Impression: 1. Probable mild gastroenteritis. No bowel obstruction. 2. New left adrenal nodule could be metastatic. Recommend further evaluation with non emergent CT adrenal mass protocol. 3. A borderline enlarged upper abdominal lymph node is nonspecific and recommend close attention to on follow-up. 4. For details in the lower thorax, please see dedicated chest CT done on the same day.
--- NOTE | 2016-08-15 13:23 | CT ---
Exam: CT thorax without contrast. Clinical indication: Cough with history breast cancer. TECHNIQUE: Axial unenhanced CT images of the thorax were obtained followed by coronal and sagittal reformats. Comparison is made to the prior study dated 05/14/2016. Findings: There is interval increase in the heterogeneous lobulated soft tissue abnormality along the superior and posteromedial aspect of the right pleural space. On axial image number 18 the soft tissue abno rmality measures roughly 6.0 x 1.7 cm in axial dimension, previously 4.0 x 8 1.2 cm. Within the pulmonary parenchyma anterior to some dystrophic calcifications within the posterior aspe ct of the right upper lobe there is interval increase in a soft tissue abnormality which measures ro ughly 2.3 x 2.3 cm in diameter previously 1.5 x 1.6 cm in diameter. Within the anterior aspect of the right upper lobe there is interval increase in the heterogeneous i ll-defined nodular opacities which measures 1.8 x 1.3 cm in diameter, previously 1.4 x 0.9 cm in santos meter, best appreciated on axial image number 18. These findings are superimposed on moderate to severe underlying centrilobular and paraseptal emphys silvio with some right-sided pulmonary parenchymal scarring. There is interval development of a small right-sided pleural effusion. There is no left-sided pleur al abnormality. There is a right internal jugular Port-A-Cath which remains in good position. There are no enlarged axillary lymph nodes, by size criteria. There are calcified hilar and mediastinal lymph nodes, consistent with old healed granulomatous dise ase. Without IV contrast it is difficult to ascertain whether there are any enlarged mediastinal ly mph nodes. There are coronary artery calcifications. There has been a prior cholecystectomy. There is an borderline enlarged lymph node adjacent the right diaphragmatic crux, axial image number 53, which measures 0.9 cm in diameter, previously barely per separable. The left adrenal gland has a slightly nodular appearance with a questionable 1.3 cm nodule which was not present previously. The remainder of the visualized portions of the upper abdomen are unremark able. There is no CT evidence of definite bony metastatic disease. Impression: 1. Interval increase in right-sided pleural based nodular mass-like area concerning for metastatic disease. 2. Two heterogeneous nodular opacities within the right upper lobe which could represent neoplasm v ersus infectious/inflammatory etiology. 3. Interval enlargement of a single left upper abdominal retroperitoneal lymph node. 4. Interval development of subtle nodularity involving the left adrenal gland which could represent metastatic disease. 5. Moderate to severe underlying centrilobular emphysema. 6. Coronary artery disease.
--- NOTE | 2016-08-15 13:56 | ED.PDOC ---
General ED Provider: Dr. OLGA LIDIA GARCIA Chief Complaint: Nausea/Vomiting Stated Complaint: GENERALIZED WEAKNESS PAIN Time Seen by Physician: 11:30 Mode of Arrival: Walk-In Information Source: Patient Exam Limitations: No limitations Primary Care Provider: JOSÉ KOVACS Nursing and Triage Documentation Reviewed and Agree: Yes Neurological Complaint Exam - Weakness Complaint/Exam Last Known Well: CHRONIC WORSE TODAY DARK STOOLS REPORTED VOMITED X2 Onset: Gradual Duration: OFF/ON HAS HISTORY OF TERMINAL BREAST CANCER Symptoms Are: Still present Timing: Intermittent Episodes Lasting: Weeks Initial Severity: Mild Current Severity: Mild Character: Reports: Weak Aggravating: Reports: None Alleviating: Reports: None Associated Signs and Symptoms: Reports: Nausea, Vomiting. Denies: Diaphoresis, Tinnitus, Chest pain, Short of air, Palpitations, Unsteady gait, GI blood loss, Visual changes, Decreased oral intake, Change in medication, Change in diet, OTC meds, Loss of balance Related History: Similar episode Cardiac Risk Factors: Reports: Hypertension, Elevated lipids CVA Risk Factors: Reports: Hypertension Related Surgical History: Reports: None JVD Present: No Carotid Bruit Present: No Rectal Heme Positive: No Glascow Coma Scale (see protocol): 15 Nystagmus Present: No Gag Reflex Present: No Meningeal Signs Positive: No Focal Weakness: Present: None Focal Sensory Loss: Present: None Gait: Normal Babinski Sign: Negative Right Differential Diagnoses: Dysrhythmia, Hypovolemia, GI Bleed, Medication reaction , Metabolic abnormalities, Vasovagal reaction, Other (CANCER ) Quality Indicators for Cardiac Chest Pain: EKG in 10min. Quality Indicators for AMI: EKG in 10min. Quality Indicator For Non-Traumatic Chest Pain/Syncope: EKG Performed Review of Systems - Review Of Systems Constitutional: Reports: No symptoms Eyes: Reports: No symptoms Ears, Nose, Mouth, Throat: Reports: No symptoms Respiratory: Reports: No symptoms Cardiac: Reports: No symptoms GI: Reports: Abdominal pain, Nausea, Vomiting, Other (BLACK STOOLS) : Reports: No symptoms Musculoskeletal: Reports: No symptoms Skin: Reports: No symptoms Neurological: Reports: No symptoms Endocrine: Reports: No symptoms Hematologic/Lymphatic: Reports: No symptoms All Other Systems: Reviewed and Negative Past Medical History - Past Medical History Previously Healthy: No Endocrine: Reports: Dyslipidemia Cardiovascular: Reports: [place] (HEART CATH-September, ), Hypertension Respiratory: Reports: COPD Hematological: Reports: None Gastrointestinal: Reports: GERD Genitourinary: Reports: None Neuro/Psych: Reports: Migraine, Anxiety, Depression Musculoskeletal: Reports: Back Pain Cancer: Reports: Lung, Colon ( 8 IN OF COLON REMOVED), Breast (R BREAST SURG, metAstatic breast cancer) Last Menstrual Period: none Other Pertinent Past Medical History: R BREAST SURG, GALLBLADDER REM, HYSTERECTOMY - Surgical History General Surgical History: Reports: Hysterectomy, Appendectomy, Cholecystectomy, Orthopedic, Back Surgery, Other (R BREAST SURG, LUNG SURG RIGHT-June). Denies : CABG (HEART CATH-September; 8 IN OF COLON REM 6 MO AGO, LUNG SURG RIGHT-June) - Family History Family History: Reports: None, Other (Yes: CHILDREN ARE VERBALLY ABUSIVE, THEY DO NOT LIVE WITH HER.) - Social History Smoking Status: Current some day smoker, Light tobacco smoker Hx Substance Use: No Alcohol Screening: None Physical Exam - Physical Exam Appearance: Well-appearing, No pain distress, Well-nourished Eyes: TYLER, EOMI, Conjunctiva clear ENT: Ears normal, Nose normal, Oropharynx normal Respiratory: Airway patent, Breath sounds clear, Breath sounds equal, Respirations nonlabored Cardiovascular: RRR, Pulses normal, No rub, No murmur GI/: Soft, Nontender, No masses, Bowel sounds normal, No Organomegaly Musculoskeletal: Normal strength, ROM intact, No edema, No calf tenderness Skin: Warm, Dry, Normal color Neurological: Sensation intact, Motor intact, Reflexes intact, Cranial nerves intact, Alert, Oriented Psychiatric: Affect appropriate, Mood appropriate Interpretation - Radiology Interpretation Radiology Interpretation By: Radiologist Radiology Results: Positive (CA WITH METS) Critical Care Note - Critical Care Note Total Time (mins): 0 Course - Course Hematology/Chemistry: 08/15/16 12:16 08/15/16 12:16 Orders, Labs, Meds: Lab Review 08/15/16 08/15/16 11:50 12:16 WBC 11.67 H RBC 3.78 L Hgb 10.6 L Hct 32.1 L MCV 84.9 MCH 28.0 MCHC 33.0 RDW Coeff of Misbah 13.2 Plt Count 410 Immature Gran % (Auto) 0.4 Neut % (Auto) 59.4 Lymph % (Auto) 27.7 Starke % (Auto) 9.4 Eos % (Auto) 2.7 Baso % (Auto) 0.4 Immature Gran # (Auto) 0.1 Neut # 6.9 Lymph # 3.2 Starke # 1.1 Eos # 0.3 Baso # 0.1 Sodium 136 Potassium 5.1 Chloride 106 Carbon Dioxide 19 L Anion Gap 16.1 BUN 33 H Creatinine 1.14 Estimated GFR (MDRD) 48.00 BUN/Creatinine Ratio 28.94 Glucose 105 Lactic Acid 8.0 Calcium 9.5 Total Bilirubin 0.19 AST 25 ALT 12 Alkaline Phosphatase 101 Total Creatine Kinase 43 Troponin I 0.0190 Total Protein 8.3 H Albumin 3.1 L Globulin 5.2 Albumin/Globulin Ratio 0.60 Procalcitonin 0.37 Stl Occult Blood (IFOB) Negative Stool Occult Blood #2 No specimen received Stool Occult Blood #3 No specimen received Orders Category Date Time Status EKG-(ED ONLY) Stat CARDIO 08/15/16 11:42 Completed ED IV/MEDIPORT/POWERPORT .ONCE EMERGENCY 08/15/16 11:42 Active BLOOD CULTURE Stat LAB 08/15/16 12:16 Received CBC W/ AUTO DIFF Stat LAB 08/15/16 12:16 Completed COMPREHENSIVE METABOLIC PANEL Stat LAB 08/15/16 12:16 Completed CREATINE KINASE Stat LAB 08/15/16 12:16 Completed LACTIC ACID Stat LAB 08/15/16 12:16 Completed OCCULT BLOOD, STOOL Stat LAB 08/15/16 11:50 Completed PROCALCITONIN Stat LAB 08/15/16 12:16 Completed TROPONIN I Stat LAB 08/15/16 12:16 Completed URINALYSIS C & S IF INDICATED Stat LAB 08/15/16 11:40 Uncollected 0.9 % Sodium Chloride [Saline Flush] MEDS 08/15/16 11:41 Active 1 syr IVF PRN PRN Morphine Sulfate [Morphine 4 mg/ml Syringe] MEDS 08/15/16 12:18 Discontinued 4 mg IM ONCE STA Morphine Sulfate [Morphine 4 mg/ml Syringe] MEDS 08/15/16 12:26 Discontinued 4 mg IVP ONCE STA Promethazine HCl [Phenergan 25 mg/ml Vial] MEDS 08/15/16 12:33 Discontinued 25 mg .ROUTE .STK-MED ONE Promethazine HCl [Phenergan 25 mg/ml Vial] 25 mg MEDS 08/15/16 12:31 Discontinued 0.9 % Sodium Chloride [Sodium Chloride] [address] ABDOMEN/PELVIS WO CONTRAST Stat RADS 08/15/16 11:[address] CHEST W/O CONTRAST Stat RADS 08/15/16 11:41 Completed Medications Generic Name Dose Route Start Last Admin Trade Name Freq PRN Reason Stop Dose Admin Sodium Chloride 1 syr 08/15/16 11:41 Saline Flush IVF PRN PRN To flush IV Discontinued Medications Generic Name Dose Route Start Last Admin Trade Name Freq PRN Reason Stop Dose Admin Promethazine HCl 25 mg/ Sodium 51 mls @ 75 mls/hr 08/15/16 12:31 08/15/16 12: 52 Chloride IV 08/15/16 13:11 75 mls/hr ONCE STA Administration Morphine Sulfate 4 mg 08/15/16 12:18 08/15/16 13:25 Morphine 4 Mg/Ml Syringe IM 08/15/16 12:19 Not Given ONCE STA Morphine Sulfate 4 mg 08/15/16 12:26 08/15/16 12:27 Morphine 4 Mg/Ml Syringe IVP 08/15/16 12:27 4 mg ONCE STA Administration Vital Signs: Temp Pulse Resp BP Pulse Ox 08/15/16 11:26 98.0 F 108 H 18 95/66 94 L Departure - Departure Time of Disposition: 13:57 Disposition: HOME SELF-CARE Discharge Problem: Nausea, Vomiting Anemia Qualifiers: Anemia type: unspecified type Qualifier Code: (D64.9) Anemia, unspecified Instructions: Rectal Bleeding (ED), Anemia (ED) Condition: Good Pt referred to PMD for follow-up: No Prescriptions: Oxycodone HCl/Acetaminophen [Percocet 10-325 mg Tablet] 1 each PO RTQ8H #30 tablet Allergies/Adverse Reactions: Allergies aspirin Adverse Reaction (Verified 08/15/16 11:31) ciprofloxacin HCl [From Cipro] Adverse Reaction (Verified 08/15/16 11:31) codeine Adverse Reaction (Verified 08/15/16 11:31) Home Medications: Ambulatory Orders Ranitidine HCl [Zantac 75] 300 mg PO BID 12/28/12 Metoprolol Tartrate [Lopressor] 12.5 mg PO BID 04/02/14 Isosorbide Mononitrate [Imdur] 30 mg PO DAILY 06/19/14 Lisinopril 2.5 mg PO DAILY 12/20/15 Escitalopram Oxalate [Lexapro] 10 mg PO DAILY #30 01/17/16 Alprazolam [Xanax] 2 mg PO QID #60 07/03/16 Benzonatate [Tessalon Perles] 200 mg PO TID PRN #20 capsule 07/16/16 Phenazopyridine HCl [Pyridium] 200 mg PO TID PRN #10 tablet 08/11/16 Sulfamethoxazole/Trimethoprim [Bactrim Ds 800/160 mg] 1 tab PO Q12HR #14 tablet 08/11/16 Oxycodone HCl/Acetaminophen [Percocet 10-325 mg Tablet] 1 each PO RTQ8H #30 tablet 08/15/16
== END 2016-08-15 14:05 | disposition home or self-care (01) ==
LOC: ED 11:26
DX: R11.2 Nausea with vomiting, unspecified (principal); D64.9 Anemia, unspecified; R53.1 Weakness; R52 Pain, unspecified; I10 Essential (primary) hypertension; E78.5 Hyperlipidemia, unspecified; C50.919 Malignant neoplasm of unspecified site of unspecified female breast; C78.00 Secondary malignant neoplasm of unspecified lung; C78.5 Secondary malignant neoplasm of large intestine and rectum; I25.2 Old myocardial infarction; F17.210 Nicotine dependence, cigarettes, uncomplicated; Z79.899 Other long term (current) drug therapy
CPT/HCPCS: 36415; 80053; 82272; 82550; 83605; 84145; 84484; 85025; 87040; 93005; 93010; 96365; 96375; 99283

== ENCOUNTER 2016-08-23 18:27 | Emergency (ER) ==
[2016-08-23 18:41] VITALS: BP 136/79; TEMP 98.8; BMI 23.4
[2016-08-23] MEDS: MORPHINE 4 MG/ML SYRINGE IM STA (19:09)
[2016-08-23] MEDS: PHENERGAN 25 MG/ML VIAL IM STA (19:10)
[2016-08-23] MEDS: ATIVAN IM STA (19:10)
[2016-08-23 20:05] LABS: TROPONIN I 0.012 ng/ml (0.0000-0.4000)
[2016-08-23 20:25] LABS: BASOPHILS % (AUTO) 0.3 % (0.0-3.0); EOSINOPHILS # (AUTO) 0.3 K/ul (0.0-0.7); EOSINOPHILS % (AUTO) 2.3 % (0.0-7.0); HEMATOCRIT 29.8 % (37.0-47.0); HEMOGLOBIN 9.6 g/dl (12.0-16.0); IMMATURE GRANULOCYTE % (AUTO) 0.4 % (0.0-5.0); LYMPHOCYTES # (AUTO) 3.4 K/uL (0.60-3.4); LYMPHOCYTES % (AUTO) 29.2 (10.0-50.0); MEAN CORPUSCULAR HEMOGLOBIN 27.6 pg (27.0-31.0); MEAN CORPUSCULAR HGB CONC 32.2 (31.8-35.4); MEAN CORPUSCULAR VOLUME 85.6 fl (81.0-99.0); MONOCYTES # (AUTO) 1.3 K/uL (0.4-2.0); MONOCYTES % (AUTO) 11.4 (0-10); NEUTROPHILS # (AUTO) 6.5 K/ul (2.0-6.9); NEUTROPHILS % (AUTO) 56.4; PLATELET COUNT 359 10^3/uL (140-440); RED BLOOD COUNT 3.48 10^6/ul (4.20-5.40); WHITE BLOOD COUNT 11.56 K/ul (4.6-10.2)
[2016-08-23 20:38] LABS: ALBUMIN 2.9 g/dL (3.4-5.0); ALBUMIN/GLOBULIN RATIO 0.58; BILIRUBIN,TOTAL 0.22 mg/dL (0.00-1.20); BUN/CREATININE RATIO 20.58; CALCIUM 9.1 mg/dL (8.2-10.2); CREATININE 0.68 mg/dL (0.60-1.30); TOTAL PROTEIN 7.9 g/dL (5.8-8.1)
--- NOTE | 2016-08-23 21:43 | CT ---
Exam: CTA chest. Date: 08/23/2016. Comparison: 08/15/2016. HISTORY: Elevated D-dimer with history of lung cancer. TECHNIQUE: Helical scan of the thorax was performed following intravenous contrast. MIP and 3-D re construction was performed. FINDINGS: A MediPort catheter is implanted the soft tissues over the upper right thorax. The thorac ic inlet and axillary regions are normal. There is retrosternal soft tissue again identified behind the manubrium that measures 2.1 x 1.7 cm, on axial image 40. This paratracheal soft tissue extends down to the anterior margin of the right mainstem bronchus. It extends into the right hilum and sub carinal spaces; there is subcarinal adenopathy measuring 2.5 x 2.3 cm. The caliber of the thoracic aorta cardiac chambers are normal. The spleen and upper liver have a uniform enhancement. Cholecys tectomy is noted. There is diffuse enlargement of the left adrenal gland measuring approximately 2. 0 x 1.5 cm. The right adrenal gland is normal. The thoracic spine and ribs are within normal limit s. Evaluation at lung window settings demonstrates extensive paraseptal emphysematous changes. There i s thickening of the pleura in the right upper lobe with nodularity present. There is redemonstratio n of a 1.4 x 1.0 cm spiculated mass in the right upper lobe on image 40. An additional focus of sof t tissue thickening is present in the posterior segment right upper lobe on image 44, measuring 2.1 x 2.2 cm and is adjacent to a suture line. There is mild peribronchial thickening also present in t he right upper lobe and there is probable loculated fluid in the major and minor fissures. There is soft tissue surrounding the trifurcation of the right lower lobe bronchi and there is a loculated pl eural fluid collection again seen in the right lower lobe with subpleural interstitial thickening al so present. There is good enhancement of the pulmonary arteries. No intraluminal filling defects are seen out t o the segmental pulmonary arterial divisions. Impression: No evidence of emboli out to the segmental pulmonary arterial divisions. Patient has a history of lung cancer, with marked paraseptal emphysematous changes and a loculated r ight pleural effusion, with areas of interstitial thickening present throughout the right lung with changes of a partial right upper lobectomy present. In addition there is thickening of the pleura i n the right lung apex with soft tissue in the right paratracheal region that extends down into the r ight hilum and encases the trifurcation of the right lower lobe bronchi, along with soft tissue in t he subcarinal space. Any of these findings could represent recurrent or residual disease. Left adrenal enlargement; this could represent a lipid poor adenoma or a metastatic deposit.
--- NOTE | 2016-08-23 21:51 | ED.PDOC ---
General ED Provider: Dr. MARK NUNEZ-ER Chief Complaint: Non-specific Complaint Stated Complaint: i have lung cancer--i have pain at the bx site and i am very nervous Time Seen by Physician: 18:50 Mode of Arrival: Walk-In Information Source: Patient Exam Limitations: No limitations Primary Care Provider: JOSÉ KOVACS Nursing and Triage Documentation Reviewed and Agree: Yes Respiratory Complaint Exam - Respiratory Complaint/Exam Onset/Duration: 3 days Symptoms Are: Still present Timing: Intermittent Initial Severity: Mild Current Severity: Mild Location: Chest Character: Reports: Non-productive cough Aggravating: Reports: URI Alleviating: Reports: None Associated Signs and Symptoms: Reports: Chest pain. Denies: Rapid breathing, Dyspnea, Fever, Chills, Pleuritic chest pain, Wheezing, Hemoptysis, Dizziness, Calf pain, Calf swelling, Edema, URI, Nasal congestion, Hoarseness, Sinus discomfort, Vomiting, Sore throat, Weight loss, Decreased oral intake, Increased thirst, Increased appetite, Increased urination Related History: Reports: Similar episode History of Healthcare-Acquired Pneumonia: No Pulmonary Embolism Risk Factors: None Pseudomonas Risk Factors: Reports: Chronic Lung Disease Status Asthmaticus Risk Factors: Reports: None Home Oxygen Use: No Recent Stress Test: No Recent Echo/LV Function: No Current Antibiotic Use: No Current Asthma Medication Use: No Respiratory Distress: None Inadequate Respiratory Effort: No Dysphagia Present: No Stridor Present: No JVD Present: No Accessory Muscle Use: No Retractions: Not Present Diminished Breath Sounds: Yes Sinus Tenderness: None Grunting Respirations: No Kussmaul Respirations: No Differential Diagnoses: Chest Wall Pain, Pneumonia Non-Traumatic Chest Pain Syncope: EKG Performed Review of Systems - Review Of Systems Constitutional: Reports: No symptoms Eyes: Reports: No symptoms Ears, Nose, Mouth, Throat: Reports: No symptoms Respiratory: Reports: Cough Cardiac: Reports: Chest pain GI: Reports: No symptoms : Reports: No symptoms Musculoskeletal: Reports: No symptoms Skin: Reports: No symptoms Neurological: Reports: No symptoms Endocrine: Reports: No symptoms Hematologic/Lymphatic: Reports: No symptoms All Other Systems: Reviewed and Negative Past Medical History - Past Medical History Previously Healthy: No Endocrine: Reports: Dyslipidemia Cardiovascular: Reports: [place] (HEART CATH-September, ), Hypertension Respiratory: Reports: COPD Hematological: Reports: None Gastrointestinal: Reports: GERD Genitourinary: Reports: None Neuro/Psych: Reports: Migraine, Anxiety, Depression Musculoskeletal: Reports: Back Pain Cancer: Reports: Lung, Colon ( 8 IN OF COLON REMOVED), Breast (R BREAST SURG, metAstatic breast cancer) Last Menstrual Period: HYSTERECTOMY Other Pertinent Past Medical History: R BREAST SURG, GALLBLADDER REM, HYSTERECTOMY - Surgical History General Surgical History: Reports: Hysterectomy, Appendectomy, Cholecystectomy, Orthopedic, Back Surgery, Other (R BREAST SURG, LUNG SURG RIGHT-June). Denies : CABG (HEART CATH-September; 8 IN OF COLON REM 6 MO AGO, LUNG SURG RIGHT-June) - Family History Family History: Reports: None, Other (Yes: CHILDREN ARE VERBALLY ABUSIVE, THEY DO NOT LIVE WITH HER.) - Social History Smoking Status: Current some day smoker, Light tobacco smoker Hx Substance Use: No Alcohol Screening: None Lives: With family Physical Exam - Physical Exam Appearance: Well-appearing, No pain distress, Well-nourished Pain Distress: Mild Eyes: TYLER, EOMI, Conjunctiva clear ENT: Ears normal, Nose normal, Oropharynx normal Neck: Supple Respiratory: Airway patent, Breath sounds clear, Breath sounds equal, Respirations nonlabored Cardiovascular: RRR, Pulses normal, No rub, No murmur GI/: Soft, Nontender, No masses, Bowel sounds normal, No Organomegaly Musculoskeletal: Normal strength, ROM intact, No edema, No calf tenderness Skin: Warm, Dry, Normal color Neurological: Sensation intact, Motor intact, Reflexes intact, Cranial nerves intact, Alert, Oriented Psychiatric: Anxious Interpretation - Radiology Interpretation Radiology Interpretation By: Radiologist Radiology Results: Positive Exam Interpreted: CT Scan - EKG Interpretation Time of EKG #1: 21:51 Rate: Normal Rhythm: Sinus Ectopy: None [place]: NL ST Segment: Normal Re-Evaluation - Re-Evaluation Time of Re-Evaluation: 21:51 Status: Improved Vital Signs Stable: Yes Pain Level: 1 Appearance: NAD Lungs: Clear Skin: Warm and Dry Neuro: Alert and Oriented X3 CV: RRR Additional Comments: ws very anxious and said the ativan "relaxed me a lot" Critical Care Note - Critical Care Note Total Time (mins): 0 Course - Course Hematology/Chemistry: 08/23/16 19:40 08/23/16 19:40 Orders, Labs, Meds: Lab Review 08/23/16 19:40 WBC 11.56 H RBC 3.48 L Hgb 9.6 L Hct 29.8 L MCV 85.6 MCH 27.6 MCHC 32.2 RDW Coeff of Misbah 14.2 Plt Count 359 Immature Gran % (Auto) 0.4 Neut % (Auto) 56.4 Lymph % (Auto) 29.2 Ector % (Auto) 11.4 H Eos % (Auto) 2.3 Baso % (Auto) 0.3 Immature Gran # (Auto) 0.1 Neut # 6.5 Lymph # 3.4 Ector # 1.3 Eos # 0.3 Baso # 0.0 D-Dimer (Manual) 4862.98 Sodium 140 Potassium 3.0 L Chloride 108 H Carbon Dioxide 20 L Anion Gap 15.0 BUN 14 Creatinine 0.68 Estimated GFR (MDRD) 88.00 BUN/Creatinine Ratio 20.58 Glucose 117 H Calcium 9.1 Total Bilirubin 0.22 AST 38 H ALT 15 Alkaline Phosphatase 90 Total Creatine Kinase 77 Troponin I 0.0120 Total Protein 7.9 Albumin 2.9 L Globulin 5.0 Albumin/Globulin Ratio 0.58 Orders Category Date Time Status EKG-(ED ONLY) Stat CARDIO 08/23/16 18:46 Completed NPO REMINDER: IMAGING ONCE CARE 08/23/16 20:42 Completed IV [ED IV/MEDIPORT/POWERPORT] .ONCE EMERGENCY 08/23/16 19:50 Active CBC W/ AUTO DIFF Stat LAB 08/23/16 19:40 Completed CMP [COMPREHENSIVE METABOLIC PANEL] Stat LAB 08/23/16 19:40 Completed CREATINE KINASE Stat LAB 08/23/16 19:40 Completed D-DIMER Stat LAB 08/23/16 19:40 Completed TROPONIN I Stat LAB 08/23/16 19:40 Completed 0.9 % Sodium Chloride [Saline Flush] MEDS 08/23/16 19:50 Ordered 1 syr IVF PRN PRN Lorazepam Inj [Ativan] MEDS 08/23/16 18:48 Discontinued 1 mg IM ONCE STA Morphine Sulfate [Morphine 4 mg/ml Syringe] MEDS 08/23/16 18:47 Discontinued 4 mg IM ONCE STA Promethazine HCl [Phenergan 25 mg/ml Vial] MEDS 08/23/16 18:47 Discontinued 25 mg IM ONCE STA CT CHEST PE PROTOCOL Stat RADS 08/23/16 20:42 Completed CXR [CHEST, 1V AP ONLY] Stat RADS 08/23/16 18:47 Taken Medications Generic Name Dose Route Start Last Admin Trade Name Ale PRN Reason Stop Dose Admin Sodium Chloride 1 syr 08/23/16 19:50 Saline Flush IVF PRN PRN To flush IV Discontinued Medications Generic Name Dose Route Start Last Admin Trade Name Ale PRN Reason Stop Dose Admin Lorazepam 1 mg 08/23/16 18:48 08/23/16 19:10 Ativan IM 08/23/16 18:49 1 mg ONCE STA Administration Morphine Sulfate 4 mg 08/23/16 18:47 08/23/16 19:09 Morphine 4 Mg/Ml Syringe IM 08/23/16 18:48 4 mg ONCE STA Administration Promethazine HCl 25 mg 08/23/16 18:47 08/23/16 19:10 Phenergan 25 Mg/Ml Vial IM 08/23/16 18:48 25 mg ONCE STA Administration Vital Signs: Temp Pulse Resp BP Pulse Ox 08/23/16 18:30 98.8 F 113 H 20 136/79 95 Departure - Departure Time of Disposition: 21:52 Disposition: HOME SELF-CARE Discharge Problem: Chest wall pain, Anxiety Instructions: Anxiety (ED) Condition: Stable Pt referred to PMD for follow-up: Yes Additional Instructions: f/u with pcp and cancer doctor Allergies/Adverse Reactions: Allergies aspirin Adverse Reaction (Verified 08/23/16 18:41) ciprofloxacin HCl [From Cipro] Adverse Reaction (Verified 08/23/16 18:41) codeine Adverse Reaction (Verified 08/23/16 18:41) Home Medications: Ambulatory Orders Ranitidine HCl [Zantac 75] 300 mg PO BID 12/28/12 Metoprolol Tartrate [Lopressor] 12.5 mg PO BID 04/02/14 Isosorbide Mononitrate [Imdur] 30 mg PO DAILY 06/19/14 Lisinopril 2.5 mg PO DAILY 12/20/15 Escitalopram Oxalate [Lexapro] 10 mg PO DAILY #30 01/17/16 Alprazolam [Xanax] 2 mg PO QID #60 07/03/16 Oxycodone HCl/Acetaminophen [Percocet 10-325 mg Tablet] 1 each PO RTQ8H #30 tablet 08/15/16 Disposition Discussed With: Patient
--- NOTE | 2016-08-24 03:40 | DI ---
EXAM: AP single view of the chest. HISTORY: Chest pain. FINDINGS: There is an old right rib fracture.. There is a right-sided MediPort catheter with the ti p at the level of the right atrium. The cardiac silhouette and pulmonary vasculature are within nor mal limits. The left costophrenic angle is clear. There is a small right pleural effusion extendin g into the fissure. There are emphysematous changes throughout both lungs. There are right lung inf iltrates. Impression: Right lung infiltrates suspicious for pneumonia. Small right pleural effusion. Chronic obstructive pulmonary disease. Please see report from CT chest of 08/23/2016 for further details.
== END 2016-08-23 22:16 | disposition home or self-care (01) ==
LOC: ED 18:27
DX: R07.89 Other chest pain (principal); F41.9 Anxiety disorder, unspecified; R05 Cough; I10 Essential (primary) hypertension; J44.9 Chronic obstructive pulmonary disease, unspecified; I25.2 Old myocardial infarction; Z90.2 Acquired absence of lung [part of]; Z85.118 Personal history of other malignant neoplasm of bronchus and lung; Z85.3 Personal history of malignant neoplasm of breast; Z85.038 Personal history of other malignant neoplasm of large intestine; Z95.828 Presence of other vascular implants and grafts; F17.200 Nicotine dependence, unspecified, uncomplicated
CPT/HCPCS: 36415; 80053; 82550; 84484; 85025; 85379; 93005; 93010; 96372; 99284; 99285

== ENCOUNTER 2016-08-27 09:35 | Emergency (ER) | payer OTHER ==
[2016-08-27 09:36] VITALS: BMI 23.4
[2016-08-27 09:56] VITALS: BP 112/73; TEMP 97.4
[2016-08-27] MEDS ORDERED: ZOFRAN 4 MG/2 ML IM STA (10:17)
[2016-08-27] MEDS ORDERED: MORPHINE 4 MG/ML SYRINGE IM STA (10:17)
--- NOTE | 2016-08-27 10:18 | ED.PDOC ---
General ED Provider: Dr. SETH DRUMMOND JR Chief Complaint: Nausea/Vomiting Stated Complaint: Didn't feel well yesterday. Ate yesterday, vomited today. Hx Stage 4 breast Ca with mets to lung. States changed chemo med 5 days ago. Pt believes is causing pain to shoulders. Also c/o burning on urination. [ End ] 97.4 115 24 95% 112/73 10/10 out of pain med x 4 days. metastatic breast cancer. R BREAST SURG, GALLBLADDER REM, HYSTERECTOMY, HEART CATH-September, IN OF COLON REM 6 MO AGO, LUNG SURG RIGHT-June. [ End ]((patient dissapointed [facility] chemo physician "he won't talk to me" has no symptomatic medications per patietn reminded patient er is not appropriate for pain medications as leaving room patient notes has appointment for pain management tomorrow. 08/23/16 CT CHEST PE PROTOCOL Stat CXR [CHEST, 1V AP ONLY] Stat Ativan IM 08/23/16 18:49 1 mg. Morphine Sulfate 4 mg 08/23/16 18:47. Promethazine HCl 25 mg 08/23/16 18: 47: Chest wall pain, Anxiety: Anxiety (ED). 08/15 : Nausea, Vomiting Anemia: Rectal Bleeding (ED), Anemia (ED). Prescriptions: Oxycodone HCl/ Acetaminophen [Percocet 10-325 mg Tablet] 1 each PO RTQ8H #30 tablet. Oxycodone HCl/Acetaminophen [Percocet 10-325 mg Tablet] 1 each PO RTQ8H #30 tablet 08/15/16. 08/11. Instructions: Urinary Tract Infection in Women (ED), Phenazopyridine (By mouth). Condition: Good. Pt referred to PMD for follow-up : Yes. Additional Instructions: symptoms need to resolve in 2-3 days. Bactrim for seven days(may stop after 3 days if OK with oncologist or PMD). refill is written given past history. may try pyridium for symptoms. would obtain referral for urology given extent of symptoms with UTI. (avoid potassium supplements unless potassium measures low). Prescriptions: Sulfamethoxazole/Trimethoprim [Bactrim Ds 800/160 mg] 1 tab PO Q12HR #14 tablet. Phenazopyridine HCl [Pyridium] 200 mg PO TID PRN #10 tablet. PRN Reason: PAIN. Allergies/Adverse Reactions: 07/16/16 13:23) Pneumonia, Metastatic breast cancer. CALL PMD AND ONCOLOGIST FOR FOLLOW UP. RECOMMEND RECHECK 1 WEEK OR LESS. RECOMMEND REVIEW PROGNOSIS AND ARRANGE HOSPICE WHEN NEEDED. TESSLON FOR COUGH. RECHECK CHEST XRAY AFTER TIME TO RESOLVED INFECTION. RETURN IF FEVER OVER 101.0IF WEAKENING IF UNABLE TO KEEP FLUIDS OR MEDICATION DOWN. Prescriptions: Amoxicillin/Potassium Clav [Augmentin 875-125 mg Tab] 1 tab PO BIDWM #14 tablet. Benzonatate [Tessalon Perles] 200 mg PO TID PRN #20. 10/30/15. Dr. SETH DRUMMOND JR. Chief Complaint: Nosebleed. Stated Complaint: nosebleeds for 2days and thinks platelets are low[ End ]97.8 127 24 96% 107/76[ End ]blowing clots out of left side of nose both sides bleeding; daughter 2 days ago ,smoked a joint yesterday on accoint of my daughter,sees dr sheets in [facility] for chemo. Dr. Galileo Chavez at [address] [phone] Time Seen by Physician: 10:17 Information Source: Patient Exam Limitations: No limitations Primary Care Provider: JOSÉ KOVACS Nursing and Triage Documentation Reviewed and Agree: No Review of Systems - Review Of Systems Constitutional: Reports: Malaise, Weakness, Loss of appetite Eyes: Reports: No symptoms Ears, Nose, Mouth, Throat: Reports: No symptoms Respiratory: Reports: Cough Cardiac: Reports: Lightheadedness GI: Reports: Nausea, Vomiting : Reports: No symptoms Musculoskeletal: Reports: No symptoms Skin: Reports: No symptoms Neurological: Reports: Anxiety, Weakness Endocrine: Reports: No symptoms Hematologic/Lymphatic: Reports: No symptoms, Swollen glands (not verifiable) All Other Systems: Other Past Medical History - Past Medical History Previously Healthy: No Endocrine: Reports: Dyslipidemia Cardiovascular: Reports: [place] (HEART CATH-September, ), Hypertension Respiratory: Reports: COPD Hematological: Reports: None Gastrointestinal: Reports: GERD Genitourinary: Reports: None Neuro/Psych: Reports: Migraine, Anxiety, Depression Musculoskeletal: Reports: Back Pain Cancer: Reports: Lung, Colon ( 8 IN OF COLON REMOVED), Breast (R BREAST SURG, metAstatic breast cancer) Last Menstrual Period: hysterectomy Other Pertinent Past Medical History: R BREAST SURG, GALLBLADDER REM, HYSTERECTOMY - Surgical History General Surgical History: Reports: Hysterectomy, Appendectomy, Cholecystectomy, Orthopedic, Back Surgery, Other (R BREAST SURG, LUNG SURG RIGHT-June). Denies : CABG (HEART CATH-September; 8 IN OF COLON REM 6 MO AGO, LUNG SURG RIGHT-June) - Family History Family History: Reports: None, Other (Yes: CHILDREN ARE VERBALLY ABUSIVE, THEY DO NOT LIVE WITH HER.) - Social History Smoking Status: Current some day smoker, Light tobacco smoker Hx Substance Use: No Alcohol Screening: None Physical Exam - Physical Exam Appearance: Well-appearing, No pain distress, Well-nourished Ill-appearing: Mild Pain Distress: Mild Eyes: TYLER ENT: Ears normal, Nose normal, Oropharynx normal Neck: Supple Respiratory: Airway patent, Breath sounds clear, Breath sounds equal, Respirations nonlabored Cardiovascular: RRR, Pulses normal, No rub, No murmur GI/: Soft, Nontender, No masses, Bowel sounds normal, No Organomegaly Musculoskeletal: Normal strength, ROM intact, No edema, No calf tenderness Skin: Warm, Dry, Normal color (tender mass under right arm that patietn complains of is not palpable or reproducible) Neurological: Sensation intact, Motor intact, Reflexes intact, Cranial nerves intact, Alert, Oriented Psychiatric: Anxious Critical Care Note - Critical Care Note Total Time (mins): 5 Course - Course Hematology/Chemistry: 08/27/16 10:38 Orders, Labs, Meds: Lab Review 08/27/16 08/27/16 10:38 10:40 WBC 8.87 RBC 3.90 L Hgb 10.6 L Hct 32.2 L MCV 82.6 MCH 27.2 MCHC 32.9 RDW Coeff of [place] 14.3 Plt Count 180 Immature Gran % (Auto) 0.5 Neut % (Auto) 70.4 Lymph % (Auto) 12.7 [place] % (Auto) 15.3 H Eos % (Auto) 0.9 Baso % (Auto) 0.2 Immature Gran # (Auto) 0.0 Neut # 6.2 Lymph # 1.1 [place] # 1.4 Eos # 0.1 Baso # 0.0 Urine Color Yellow Urine Clarity Slightly Urine pH 6.0 Ur Specific [place] 1.020 Urine Protein 2+ Urine Glucose (UA) Negative Urine Ketones 1+ Urine Blood 1+ Urine Nitrite Negative Urine Bilirubin 1+ Urine Urobilinogen 1.0 Ur Leukocyte Esterase 1+ Urine Microscopic RBC 10-20 Urine Microscopic WBC 20-30 Ur Squamous Epith Cells 5-10 Urine Bacteria 3+ Orders Category Date Time Status CBC W/ AUTO DIFF Stat LAB 08/27/16 10:38 Completed UA [URINALYSIS C & S IF INDICATED] Stat LAB 08/27/16 10:40 Completed URINE CULTURE Routine LAB 08/27/16 10:49 Received Morphine Sulfate [Morphine 4 mg/ml Syringe] MEDS 08/27/16 11:10 Discontinued 4 mg IVP ONCE STA Ondansetron HCl/Pf [Zofran 4 mg/2 ml] MEDS 08/27/16 11:10 Discontinued 4 mg IVP ONCE STA Medications Discontinued Medications Generic Name Dose Route Start Last Admin Trade Name Freq PRN Reason Stop Dose Admin Morphine Sulfate 4 mg 08/27/16 11:10 08/27/16 11:10 Morphine 4 Mg/Ml Syringe IVP 08/27/16 11:11 4 mg ONCE STA Administration Ondansetron HCl 4 mg 08/27/16 11:10 08/27/16 11:10 Zofran 4 Mg/2 Ml IVP 08/27/16 11:11 4 mg ONCE STA Administration Vital Signs: Temp Pulse Resp BP Pulse Ox 08/27/16 09:37 97.4 F L 115 H 24 112/73 95 Departure - Departure Time of Disposition: 12:49 Disposition: HOME SELF-CARE Discharge Problem: Nausea, Vomiting, Cancer determined by biopsy of breast Instructions: Self Care Measures With Cancer (ED), Nonpharmacological Management of Cancer Pain (ED) Condition: Good Pt referred to PMD for follow-up: Yes Additional Instructions: follow up with your doctor follow up with pain management tomorrow as scheduled discuss plaN with oncologist and with pmd MAY USE KEFLEX FOR DYSURIA - URINE INFECTION CALL PMD IN TWO DAYS TO CHECK ON URINE CULTURE RESULTS Prescriptions: Lorazepam [Ativan] 0.5 mg PO BID PRN #4 tablet PRN Reason: Anxiety Allergies/Adverse Reactions: Allergies aspirin Adverse Reaction (Verified 08/27/16 09:45) ciprofloxacin HCl [From Cipro] Adverse Reaction (Verified 08/27/16 09:45) codeine Adverse Reaction (Verified 08/27/16 09:45) Home Medications: Ambulatory Orders Ranitidine HCl [Zantac 75] 300 mg PO BID 12/28/12 Metoprolol Tartrate [Lopressor] 12.5 mg PO BID 04/02/14 Isosorbide Mononitrate [Imdur] 30 mg PO DAILY 06/19/14 Lisinopril 2.5 mg PO DAILY 12/20/15 Escitalopram Oxalate [Lexapro] 10 mg PO DAILY #30 01/17/16 Alprazolam [Xanax] 2 mg PO QID #60 07/03/16 Lorazepam [Ativan] 0.5 mg PO BID PRN #4 tablet 08/27/16
[2016-08-27 10:42] LABS: BASOPHILS % (AUTO) 0.2 % (0.0-3.0); EOSINOPHILS # (AUTO) 0.1 K/ul (0.0-0.7); EOSINOPHILS % (AUTO) 0.9 % (0.0-7.0); HEMATOCRIT 32.2 % (37.0-47.0); HEMOGLOBIN 10.6 g/dl (12.0-16.0); IMMATURE GRANULOCYTE % (AUTO) 0.5 % (0.0-5.0); LYMPHOCYTES # (AUTO) 1.1 K/uL (0.60-3.4); LYMPHOCYTES % (AUTO) 12.7 (10.0-50.0); MEAN CORPUSCULAR HEMOGLOBIN 27.2 pg (27.0-31.0); MEAN CORPUSCULAR HGB CONC 32.9 (31.8-35.4); MEAN CORPUSCULAR VOLUME 82.6 fl (81.0-99.0); MONOCYTES # (AUTO) 1.4 K/uL (0.4-2.0); MONOCYTES % (AUTO) 15.3 (0-10); NEUTROPHILS # (AUTO) 6.2 K/ul (2.0-6.9); NEUTROPHILS % (AUTO) 70.4; PLATELET COUNT 180 10^3/uL (140-440); WHITE BLOOD COUNT 8.87 K/ul (4.6-10.2)
[2016-08-27 10:45] LABS: BILIRUBIN,URINE 1+ (NEGATIVE); KETONES,URINE 1+ (NEGATIVE); LEUKOCYTE ESTERASE ,URINE 1+ (NEGATIVE); NITRITE,URINE Negative (NEGATIVE); PROTEIN,URINE 2+ (NEGATIVE); URINE, BLOOD 1+ (NEGATIVE)
[2016-08-27 10:48] LABS: ADD URINE MICROSCOPIC YES; BACTERIA,URINE 3+ (NOT PRESENT)
[2016-08-27] MEDS ORDERED: ZOFRAN 4 MG/2 ML IVP STA (11:10)
[2016-08-27] MEDS ORDERED: MORPHINE 4 MG/ML SYRINGE IVP STA (11:10)
== END 2016-08-27 13:20 | disposition home or self-care (01) ==
LOC: ED 09:35
DX: R11.2 Nausea with vomiting, unspecified (principal); C50.919 Malignant neoplasm of unspecified site of unspecified female breast; C78.00 Secondary malignant neoplasm of unspecified lung; R63.0 Anorexia; R53.81 Other malaise; F41.9 Anxiety disorder, unspecified; F17.200 Nicotine dependence, unspecified, uncomplicated; Z79.899 Other long term (current) drug therapy
CPT/HCPCS: 36415; 81001; 85025; 87086; 87186; 96374; 96375; 99283

== ENCOUNTER 2016-09-02 12:14 | Outpatient (CLI) | END 2016-09-02 12:15 | LOC: AMBL 12:14 | PROVIDERS: ATTEND Internal Medicine | DX: R52 Pain, unspecified (principal); C50.919 Malignant neoplasm of unspecified site of unspecified female breast; I95.2 Hypotension due to drugs ==